=== PATIENT | female | born 1990 | race African-American/Black ===

== ENCOUNTER 2017-04-26 05:45 | Emergency (ER) | payer MEDICAID ==
[~2017-04-26] VITALS: Ht 165.1 cm; Wt 61.0 kg
[2017-04-26] MEDS ORDERED: MORPHINE SULFATE 4 MG/ML CPJ (NOT FOR IM USE) IV STA (06:32)
[2017-04-26] MEDS ORDERED: MAGNESIUM/ALUMINUM HYDROXIDE/SIMETHICONE 30ML UDC PO STA (06:32)
[2017-04-26] MEDS ORDERED: ONDANSETRON HCL 4MG/2ML VIAL IV STA (06:32)
[2017-04-26] MEDS ORDERED: KETOROLAC 30MG/ML VIAL IV STA (06:32)
[2017-04-26] MEDS ORDERED: FAMOTIDINE 20MG/2ML VIAL IV STA (06:32)
[2017-04-26] MEDS ORDERED: SODIUM CHLORIDE 0.9% 1,000 ML IV ONE (06:32)
[2017-04-26] MEDS ORDERED: LORAZEPAM 2MG/ML CPJ IV ONE (06:45)
[2017-04-26 07:36] LABS: BASOPHILS % 0.3 % (0.0-2.0); HEMATOCRIT. 38.9 % (36.0-48.0); HEMOGLOBIN. 12.5 g/dL (12.0-16.0); LYMPHOCYTES % 11.5 % (20.0-50.0); MEAN CORPUSCULAR HEMOGLOBIN 25.9 pg (28.0-32.0); MEAN CORPUSCULAR VOLUME 80.7 fL (81.0-99.0); MEAN PLATELET VOLUME 8.2 fl (7.4-10.4); MONOCYTES % 6.1 % (2.0-8.0); NEUTROPHILS % 82.1 % (40.0-76.0); PLATELET 231 x1000/uL (130-400); RED BLOOD CELL COUNT 4.82 mill/uL (4.2-5.4); RED CELL DISTRIBUTION WIDTH 13.7 % (11.6-14.6)
[2017-04-26 07:38] LABS: INR 1.1; PROTHROMBIN TIME 11.3 sec (9.4-11.6)
[2017-04-26 07:43] LABS: HCG SCREEN NEGATIVE
[2017-04-26 07:47] LABS: KETONES URINE 2+ (NEGATIVE); LEUKOCYTE ESTERASE URINE 2+ (NEGATIVE); NITRITE URINE NEGATIVE (NEGATIVE); OCCULT BLOOD URINE 3+ (NEGATIVE); PH URINE 5.5 (4.5-8.0); PROTEIN URINE 2+ (NEGATIVE); SPECIFIC GRAVITY URINE 1.022 (1.005-1.030)
[2017-04-26 07:49] LABS: CHLORIDE 104 mEq/L (98-107); TROPONIN I < 0.02 ng/mL (0.00-0.04)
[2017-04-26 07:49] LABS: *BARBITURATES SCREEN URINE NEGATIVE (NEGATIVE); *BENZODIAZEPINES SCREEN URINE NEGATIVE (NEGATIVE); *COCAINE SCREEN URINE NEGATIVE (NEGATIVE); METHADONE URINE SCREEN NEGATIVE (NEGATIVE); OPIATES URINE SCREEN NEGATIVE (NEGATIVE); PHENCYCLIDINE URINE SCREEN NEGATIVE (NEGATIVE)
[2017-04-26 07:50] LABS: *AMPHETAMINES SCREEN URINE PRESUMTIVE POSITIVE (NEGATIVE)
[2017-04-26 07:51] LABS: CANNABINOID URINE SCREEN PRESUMTIVE POSITIVE (NEGATIVE)
[2017-04-26 08:02] LABS: COLOR URINE RED (YELLOW)
[2017-04-26 08:03] LABS: CLARITY URINE BLOODY (CLEAR)
[2017-04-26 10:11] VITALS: BP 128/74
== END 2017-04-26 10:22 | disposition home or self-care (01) ==
LOC: ER 05:55
DX: K29.70 Gastritis, unspecified, without bleeding (principal); N39.0 Urinary tract infection, site not specified; F15.10 Other stimulant abuse, uncomplicated; F17.200 Nicotine dependence, unspecified, uncomplicated; F10.10 Alcohol abuse, uncomplicated; Y90.9 Presence of alcohol in blood, level not specified
CPT/HCPCS: 36415; 71045; 76700; 80053; 80305; 81001; 83690; 84484; 84703; 85025; 85610; 87086; 93005; 96361; 96374; 96375; 99285; J1885; J2060; J2270; J2405; J3490; J7030; Z7610

== ENCOUNTER 2020-01-25 17:17 | Emergency (ER) | payer MEDICAID ==
[~2020-01-25] VITALS: Ht 175.3 cm; Wt 68.0 kg
[2020-01-25] MEDS ORDERED: ONDANSETRON HCL 4MG/2ML INJ IV STA ×2 (20:35→20:52)
[2020-01-25] MEDS ORDERED: SODIUM CHLORIDE 0.9% 1,000 ML IV ONE ×2 (20:45→21:00)
[2020-01-25] MEDS ORDERED: MORPHINE SULFATE 4 MG/ML CPJ (NOT FOR IM USE) IV STA (20:52)
[2020-01-25] MEDS ORDERED: MAGNESIUM/ALUMINUM HYDROXIDE/SIMETHICONE 30ML UDC PO STA (20:52)
[2020-01-25] MEDS ORDERED: FAMOTIDINE 20MG/2ML VIAL IV STA (20:52)
[2020-01-25] MEDS ORDERED: METOCLOPRAMIDE HCL 10MG/2ML VIAL IV ONE (21:45)
[2020-01-25 21:50] LABS: BASOPHILS % 0.3 % (0.0-2.0); EOSINOPHILS % 0.1 % (0.0-5.0); HEMATOCRIT. 38.5 % (36.0-48.0); HEMOGLOBIN. 12.8 g/dL (12.0-16.0); LYMPHOCYTES % 14.7 % (20.0-50.0); MEAN CORPUSCULAR HEMOGLOBIN 26.7 pg (28.0-32.0); MEAN CORPUSCULAR VOLUME 80.4 fL (81.0-99.0); MEAN PLATELET VOLUME 8.8 fl (7.4-10.4); MONOCYTES % 4.9 % (2.0-8.0); PLATELET 187 x1000/uL (130-400); RED BLOOD CELL COUNT 4.78 mill/uL (4.2-5.4)
[2020-01-25 21:55] LABS: PROTHROMBIN TIME 10.3 sec (9.6-11.0)
[2020-01-25 21:56] LABS: CHLORIDE 110 mEq/L (98-107)
[2020-01-25 21:58] LABS: HCG SCREEN NEGATIVE
[2020-01-25 22:11] LABS: CLARITY URINE CLOUDY (CLEAR); COLOR URINE RED (YELLOW); KETONES URINE 3+ (NEGATIVE); LEUKOCYTE ESTERASE URINE 1+ (NEGATIVE); NITRITE URINE NEGATIVE (NEGATIVE); OCCULT BLOOD URINE 3+ (NEGATIVE); PH URINE 5.5 (4.5-8.0); PROTEIN URINE 2+ (NEGATIVE); SPECIFIC GRAVITY URINE 1.025 (1.005-1.030); UROBILINOGEN URINE 0.2 E.U./dL (0.2-1.0)
[2020-01-25] MEDS ORDERED: MORPHINE SULFATE 4 MG/ML CPJ (NOT FOR IM USE) IV ONE (22:30)
[2020-01-25 22:48] VITALS: BP 124/87
== END 2020-01-25 22:53 | disposition home or self-care (01) ==
LOC: ER 17:17
DX: R10.13 Epigastric pain (principal); F12.10 Cannabis abuse, uncomplicated; F15.10 Other stimulant abuse, uncomplicated
CPT/HCPCS: 36415; 76700; 80053; 81003; 81025; 83690; 84703; 85025; 85610; 93005; 96361; 96374; 96375; 99285; J2270; J2765; J3490; J7030

== ENCOUNTER 2022-02-04 12:34 | Emergency (ER) | payer MEDICAID ==
[~2022-02-04] VITALS: Ht 167.6 cm; Wt 60.0 kg
[2022-02-04] MEDS ORDERED: ACETAMINOPHEN 325MG TABLET PO ONE (13:45)
[2022-02-04] MEDS ORDERED: METOCLOPRAMIDE HCL 5MG TABLET PO ONE (13:45)
[2022-02-04] MEDS ORDERED: KETOROLAC 15MG/ML VIAL IV ONE (14:30)
[2022-02-04] MEDS ORDERED: SODIUM CHLORIDE 0.9% 1,000 ML IV ONE (14:30)
[2022-02-04] MEDS ORDERED: ACET-2708 MT (15:40)
[2022-02-04] MEDS ORDERED: ALBU6.7H3 INH (15:40)
[2022-02-04 16:00] VITALS: BP 115/73
== END 2022-02-04 16:05 | disposition home or self-care (01) ==
LOC: ER 12:34
DX: B34.9 Viral infection, unspecified (principal); Z00.00 Encounter for general adult medical examination without abnormal findings; F17.290 Nicotine dependence, other tobacco product, uncomplicated; F15.10 Other stimulant abuse, uncomplicated; Z20.822 Contact with and (suspected) exposure to COVID-19
CPT/HCPCS: 81025; 87426; 96361; 96374; 99283; C9803; J1885; J7030; J8597

== ENCOUNTER 2022-09-24 16:47 | Emergency (ER) | payer MEDICAID, OTHER ==
[~2022-09-24] VITALS: Ht 167.6 cm; Wt 59.0 kg
[~2022-09-24 16:47] MED LIST: ACET-2708 MT; ALBU6.7H3 INH
[2022-09-24 16:54] VITALS: BP 134/89; PULSE 63; RESP 18; TEMP 98; O2SAT 100
[2022-09-24] MEDS ORDERED: ONDANSETRON HCL 4MG/2ML INJ IV STA (16:55)
[2022-09-24] MEDS ORDERED: MAGNESIUM/ALUMINUM HYDROXIDE/SIMETHICONE 30ML UDC PO STA (16:55)
[2022-09-24] MEDS ORDERED: SODIUM CHLORIDE 0.9% 1,000 ML IV ONE (17:00)
[2022-09-24 17:31] LABS: BASOPHILS % 0.7 % (0.0-2.0); EOSINOPHILS % 1.4 % (0.0-5.0); HEMATOCRIT. 36.5 % (36.0-48.0); HEMOGLOBIN. 11.9 g/dL (12.0-16.0); LYMPHOCYTES % 21.3 % (20.0-50.0); MEAN CORPUSCULAR HEMOGLOBIN 26.9 pg (28.0-32.0); MEAN CORPUSCULAR VOLUME 82.2 fL (81.0-99.0); MEAN PLATELET VOLUME 8.6 fl (7.4-10.4); MONOCYTES % 7.2 % (2.0-8.0); NEUTROPHILS % 69.4 % (40.0-76.0); PLATELET 207 x1000/uL (130-400); RED BLOOD CELL COUNT 4.43 mill/uL (4.2-5.4)
[2022-09-24 17:37] LABS: PROTHROMBIN TIME 10.4 sec (9.6-11.0)
[2022-09-24 17:38] LABS: HCG SCREEN NEGATIVE
[2022-09-24 17:40] LABS: CHLORIDE 109 mEq/L (98-107)
[2022-09-24 17:47] LABS: ETHANOL BLOOD < 10 mg/dL (-10)
== END 2022-09-24 22:15 | disposition left against medical advice (07) ==
LOC: ER 16:47
DX: Z53.21 Procedure and treatment not carried out due to patient leaving prior to being seen by health care provider (principal)
CPT/HCPCS: 80053; 80320; 84703; 83690; 85025; 85610; 36415; 71045; 76705; 99281; J7030; 99285; G0480